=== PATIENT | female | born 1955 | race African-American/Black ===

== ENCOUNTER 2017-07-31 04:23 | Emergency (ER) | payer MEDICARE ==
[~2017-07-31] VITALS: Ht 157.5 cm; Wt 115.4 kg
[~2017-07-31 04:23] MED LIST: ADLT ASA LOW81 MG PO; ASPIRIN EC81 MG PO; BACTRIM DS1 TAB PO; CEPHALEXIN500 MG PO; IBUPROFEN800 MG PO; LORTAB 7.5-3251 TAB PO; MULTIVITAM10 PO; TAM75CAP OR; TORADOL PO; ULTRAM50 M1 PO; ZITHROMAX Z-PAK1 TAB PO
[2017-07-31 05:39] LABS: URINE BILIRUBIN - DIPSTICK NEGATIVE (NEGATIVE); URINE BLOOD DIPSTICK TRACE-INTACT (NEGATIVE); URINE COLOR YELLOW; URINE GLUCOSE - DIPSTICK NEGATIVE (NEGATIVE); URINE KETONE NEGATIVE (NEGATIVE); URINE LEUK ESTERASE NEGATIVE (NEGATIVE); URINE NITRITE - DIPSTICK NEGATIVE (Negative); URINE PH 5.5 (4.5-8.0); URINE PROTEIN - DIPSTICK NEGATIVE (NEG-TRACE); URINE SPECIFIC GRAVITY 1.025; URINE UROBILINOGEN - DIPSTICK 0.2 E.U./dL (0.2)
[2017-07-31 05:41] LABS: HEMATOCRIT 42.8 % (37.0-47.0); HEMOGLOBIN 13.8 g/dl (12.0-16.0); IMMATURE GRANULOCYTES 0.2 % (0.0-1.0); MEAN CELL VOLUME 90.1 fL CALC (80.0-100.0); MEAN CORPUSCULAR HGB 29.1 pG CALC (26.0-32.0); MEAN CORPUSCULAR HGB CONC 32.2 g/L CALC (32.0-36.0); NEUT# 2.63 thou/uL (2.00-7.15); RED BLOOD COUNT 4.75 mill/uL (4.20-5.60); RED CELL DISTRI WIDTH 15.5 % (11.5-15.5)
[2017-07-31 05:42] LABS: URINE CLARITY CLEAR
[2017-07-31 06:01] LABS: ALBUMIN 3.9 g/dL (3.2-5.0); ALKALINE PHOSPHATASE 99 u/l (38-126); ANION GAP 17 (6-22 (CALC)); BILIRUBIN, TOTAL 0.5 mg/dL (0.0-1.4); BUN 14 mg/dL (8-23); BUN/CREATININE RATIO 22 (12-20 (CALC)); CALCIUM 9.7 mg/dL (8.4-10.2); CARBON DIOXIDE 21 mmol/l (22-30); CHLORIDE 111 mmol/l (95-108); CREATININE 0.7 mg/dL (0.5-1.0); GFR > 60 ML/MIN (>=60 (CALC)); GFR FOR AFR.AMER. > 60 ML/MIN (>=60 (CALC)); GLUCOSE 96 mg/dL (82-115); POTASSIUM 4.3 mmol/l (3.5-5.1); SGOT/AST 22 u/l (9-36); SGPT/ALT 22 u/l (11-66); SODIUM 146 mmol/l (137-146); TOTAL PROTEIN 7.1 g/dL (6.3-8.2)
[2017-07-31] MEDS ORDERED: ULTRAM50 M1 PO (07:45)
[2017-07-31] MEDS ORDERED: FLEXERIL PO (07:45)
[2017-07-31 07:47] VITALS: BP 126/64
== END 2017-07-31 07:50 | disposition home or self-care (01) ==
LOC: ED 04:23
PROVIDERS: Emergency Medicine
DX: M54.5 Low back pain (principal); M47.816 Spondylosis without myelopathy or radiculopathy, lumbar region; N20.0 Calculus of kidney

== ENCOUNTER 2020-02-16 06:33 | Day surgery (SDC) | payer MEDICARE ==
[~2020-02-16] VITALS: Ht 162.6 cm; Wt 116.1 kg
[~2020-02-16 06:33] MED LIST changes: +ASPIRIN81 MG PO; +DOCUSATE CAL240 MG PO; +FLEXERIL PO; +LORATADINE10 M1 PO; +LOSARTAN/HCT1 TA2 PO; +PHENTERMINE HCL30 MG PO
[2020-02-16 08:51] VITALS: BP 105/72
== END 2020-02-16 09:10 | disposition home or self-care (01) ==
LOC: ENDO 06:33 → ORM 08:15 → ENDO 08:30
PROVIDERS: ATTEND Surgery
PROC: 0DJD8ZZ Inspection of Lower Intestinal Tract, Via Natural or Artificial Opening Endoscopic (ICD-10-PCS; principal; 2020-02-16)
DX: Z12.11 Encounter for screening for malignant neoplasm of colon (principal); K57.30 Diverticulosis of large intestine without perforation or abscess without bleeding; K64.8 Other hemorrhoids; I10 Essential (primary) hypertension; Z86.010 Personal history of colon polyps; Z11.59 Encounter for screening for other viral diseases

== ENCOUNTER 2024-05-26 20:13 | Emergency (ER) | payer MEDICARE ==
[~2024-05-26] VITALS: Ht 162.6 cm; Wt 107.0 kg
[2024-05-26] MEDS ORDERED: ACETAMINOPHEN 500 MG TAB PO ONE (20:30)
[2024-05-26] MEDS ORDERED: ASPIRIN 81 MG/TAB PO ONE (20:30)
[2024-05-26] MEDS ORDERED: KETOROLAC TROMETHAMINE 30 MG/ML SDV IV ONE (20:30)
[2024-05-26 20:41] LABS: BASO% 0.6 % (0-3); EOS% 3.4 % (0-8); HEMATOCRIT 40.6 % (37.0-47.0); HEMOGLOBIN 12.8 g/dl (12.0-16.0); IMMATURE GRANULOCYTES 0.2 % (0.0-5.0); LYMPH% 35.1 % (15-41); MEAN CORPUSCULAR HGB 28.7 pG CALC (26.0-32.0); MEAN CORPUSCULAR HGB CONC 31.5 g/dL CAL (32.0-36.0); MONO% 9.1 % (2-13); NEUT# 4.23 thou/uL (2.00-7.15); NEUT% 51.6 % (42-76); RED BLOOD COUNT 4.46 mill/uL (4.20-5.60); RED CELL DISTRI WIDTH 15.4 % (11.5-15.5)
[2024-05-26 20:46] VITALS: BP 140/58
[2024-05-26 20:57] LABS: ALBUMIN 4.1 g/dL (3.2-5.0); ALKALINE PHOSPHATASE 89 u/l (38-126); BILIRUBIN, TOTAL 0.4 mg/dL (0.02-1.3); CHLORIDE 110 mmol/l (95-108); SGOT/AST 28 u/l (9-36); SODIUM 142 mmol/l (137-146); TOTAL PROTEIN 7.6 g/dL (6.3-8.2)
[2024-05-26 20:58] LABS: D-DIMER 3.28 mg/L (0.19-0.60)
[2024-05-26 21:01] VITALS: BP 122/61
[2024-05-26 21:02] LABS: BUN 17 mg/dL (8-23); BUN/CREATININE RATIO 17 (12-20 (CALC)); ESTIMATED GFR 61 ML/MIN (>=90 (CALC))
[2024-05-26 21:03] LABS: ANION GAP 8 (6-22 (CALC)); CARBON DIOXIDE 28 mmol/l (22-30)
[2024-05-26 21:07] LABS: ACT PARTIAL THROMBO TIME 24.6 SECONDS (20.0-32.5)
[2024-05-26 21:16] VITALS: BP 117/59
[2024-05-26 21:57] LABS: URINE BILIRUBIN - DIPSTICK Negative (NEGATIVE); URINE BLOOD DIPSTICK Negative (NEGATIVE); URINE GLUCOSE - DIPSTICK Negative (NEGATIVE); URINE KETONE Negative (NEGATIVE); URINE LEUK ESTERASE Negative (NEGATIVE); URINE NITRITE - DIPSTICK Negative (Negative); URINE PH 5.5 (4.5-8.0); URINE PROTEIN - DIPSTICK Negative (NEG-TRACE); URINE UROBILINOGEN - DIPSTICK 0.2 E.U./dL (0.2)
[2024-05-26 21:58] LABS: URINE COLOR Yellow
[2024-05-26 22:04] VITALS: BP 108/50
[2024-05-26 22:31] VITALS: BP 123/71
[2024-05-26 23:58] VITALS: BP 118/66
[2024-05-27] MEDS ORDERED: VOLTAREN - GENE75 MG PO (00:17)
[2024-05-27 00:30] VITALS: BP 118/66
== END 2024-05-27 00:30 | disposition home or self-care (01) ==
LOC: ED 20:13
PROVIDERS: Family Medicine
DX: R07.89 Other chest pain (principal); R79.89 Other specified abnormal findings of blood chemistry; I10 Essential (primary) hypertension; Z20.822 Contact with and (suspected) exposure to COVID-19
CPT/HCPCS: Q9967